=== PATIENT | female | born 1965 | race Caucasian/White ===

== ENCOUNTER 2021-10-17 23:47 | Emergency (ER) | payer OTHER, MEDICAID ==
[~2021-10-17] VITALS: Ht 154.9 cm; Wt 74.4 kg
[2021-10-17 23:49] VITALS: BP_SYST 130
[2021-10-18] MEDS ORDERED: DIPH50CA38 PO (00:13)
[2021-10-18] MEDS ORDERED: ALBU8.5H8 INH (00:13)
[2021-10-18] MEDS ORDERED: VITD2000 PO (00:13)
[2021-10-18] MEDS ORDERED: IBUP-1969 PO (00:13)
[2021-10-18] MEDS ORDERED: DIPH25TA25 PO (00:13)
[2021-10-18] MEDS ORDERED: ARIP10TA9 PO (00:13)
[2021-10-18] MEDS ORDERED: CARV3.1246 PO (00:13)
[2021-10-18] MEDS ORDERED: FAMO20TA8 PO (00:13)
[2021-10-18] MEDS ORDERED: GABA-331 PO (00:13)
[2021-10-18] MEDS ORDERED: PRAV40TA63 PO (00:13)
[2021-10-18] MEDS ORDERED: LAM100 PO (00:13)
[2021-10-18] MEDS ORDERED: OMEP20CA15 PO (00:13)
[2021-10-18] MEDS ORDERED: LOPE2CAP PO (00:13)
[2021-10-18] MEDS ORDERED: LORazepam 2 MG/ML VIAL IVP ONE (00:15)
[2021-10-18] MEDS ORDERED: levETIRAcetam 1,000 MG IV BAG 100 ML IV ONE (00:15)
[2021-10-18 01:00] LABS: BASOPHILS % (AUTO) 0.6 % (0.0-2.0); EOSINOPHILS # (AUTO) 0.4 K/uL (0.0-0.4); EOSINOPHILS % (AUTO) 6.7 % (0.0-4.0); HEMATOCRIT 34.5 % (36-48); HEMOGLOBIN 11.7 g/dL (12.0-16.0); LYMPHOCYTES % (AUTO) 36.2 % (20.5-51.5); MEAN CORPUSCULAR HEMOGLOBIN 30 pg (27-31); MEAN CORPUSCULAR HGB CONC 34 % (32-36); MEAN CORPUSCULAR VOLUME 88 fL (79.0-98.0); MONOCYTES # (AUTO) 0.5 K/uL (0.0-1.0); MONOCYTES % (AUTO) 9.4 % (1.7-9.3); NEUTROPHILS # (AUTO) 2.7 K/uL (1.8-7.7); NEUTROPHILS % (AUTO) 47.1 % (40.0-70.0); PLATELET COUNT (AUTO) 321 K/uL (130-430); RED BLOOD CELL COUNT(AUTO) 3.94 MIL/uL (4.2-6.2); RED CELL DISTRIBUTION WIDTH 13.7 % (9.0-15.0); WHITE BLOOD COUNT (AUTO) 5.6 K/uL (4.8-10.8)
[2021-10-18 01:04] LABS: ANION GAP 7 (5-15); CHLORIDE 103 mmol/L (98-107); CREATININE 0.88 mg/dL (0.55-1.30); GLUCOSE 98 mg/dL (70-99); POTASSIUM 3.7 mmol/L (3.5-5.1); SODIUM SERUM 138 mmol/L (136-145); UREA NITROGEN, BLOOD 7 mg/dL (8-21)
[2021-10-18 01:09] LABS: ALANINE AMINOTRANSFERASE 20 U/L (12-78); ALBUMIN 3.6 g/dL (3.4-4.8); ASPARTATE AMINOTRANSFERASE 20 U/L (10-37); GFR AFRICAN AMERICAN 85 mL/min (>90); TOTAL BILIRUBIN 0.2 mg/dL (0.0-1.0)
[2021-10-18 01:10] LABS: ALCOHOL, BLOOD < 3 mg/dL (<10)
[2021-10-18 06:14] VITALS: BP_SYST 142
== END 2021-10-18 06:15 | disposition home or self-care (01) ==
LOC: SED 23:47
DX: R56.9 Unspecified convulsions (principal); Z79.899 Other long term (current) drug therapy
CPT/HCPCS: 36415; 80053; 82542; 85025; 96365; 96375; 99285; G0482; J1953; J2060